=== PATIENT | male | born 1985 | race Caucasian/White ===

== ENCOUNTER → 2023-07-05 11:23 | Outpatient (REF) | payer BC, SELFPAY | LOC: HWRAD 11:23 | PROVIDERS: ATTENDING PHYSICIAN Nurse Practitioner Family; FAMILY PHYSICIAN Family Medicine | DX: R59.9 Enlarged lymph nodes, unspecified (principal) | CPT/HCPCS: 76536 ==

== ENCOUNTER → 2023-11-07 14:34 | Outpatient (REF) | payer BC, SELFPAY | LOC: HWRAD 14:34 | PROVIDERS: ATTENDING PHYSICIAN Chiropractor; FAMILY PHYSICIAN Family Medicine | DX: M62.40 Contracture of muscle, unspecified site (principal); M99.02 Segmental and somatic dysfunction of thoracic region; M99.03 Segmental and somatic dysfunction of lumbar region; M53.2X7 Spinal instabilities, lumbosacral region | CPT/HCPCS: 72070; 72110 ==